=== PATIENT | female | born 1990 | race Caucasian/White ===

== ENCOUNTER 2018-07-03 22:33 | Emergency (ER) | payer BC ==
[~2018-07-03] VITALS: Ht 172.7 cm; Wt 81.8 kg
[2018-07-03 22:37] VITALS: TEMP 99
[2018-07-03] MEDS ORDERED: APRESOLINE 10MG10 MG PO (23:12)
[2018-07-03] MEDS ORDERED: SINGULAIR 110 MG/TAB PO (23:12)
[2018-07-03] MEDS ORDERED: CLARITIN 1010 MG/TAB PO (23:13)
[2018-07-03] MEDS ORDERED: FLONASEALLERGY NS (23:13)
[2018-07-03] MEDS ORDERED: XOPENEX HF0.045 MG/A IH (23:13)
[2018-07-03] MEDS ORDERED: ULTRAM 50MG TAB50 MG PO (23:13)
[2018-07-03] MEDS ORDERED: ZYRTEC5 MG PO (23:14)
[2018-07-03 23:43] LABS: COLLECTION METHOD CLEAN CATCH
[2018-07-03 23:52] LABS: BASO # 0.1 (0.0-0.2); BASO % 0.4 % (0.0-2.0); EOS # 0.4 (0.0-0.7); EOS % 3.2 % (0-4.0); GRAN % 74.4 % (42.2-75.2); HEMOGLOBIN 14.1 g/dl (12.5-16.0); LYMPH # 1.9 (1.2-3.4); LYMPH % 15.5 % (20.0-51.0); MEAN CELL VOLUME 87 fl (80.0-100.0); MEAN CORPUSCULAR HEMOGLOBIN 30 pg (27.0-31.0); MEAN CORPUSCULAR HGB CONC 34 g/dl (33.0-37.0); MEAN PLATELET VOLUME 11.8 fl (7.4-10.4); MONO # 0.8 (0.1-0.6); MONO % 6.3 % (1.7-9.3); PLATELET COUNT 291 K/mm3 (130-400); RED BLOOD COUNT 4.72 M/mm3 (4.10-5.30)
[2018-07-03 23:55] LABS: PH 7 (5-8); URINE APPEARANCE Clear; URINE BACTERIA None Seen /hpf; URINE BILIRUBIN Negative (NEGATIVE); URINE BLOOD 3+ (NEGATIVE); URINE COLOR Straw; URINE GLUCOSE Negative (NEGATIVE); URINE KETONE Negative (NEGATIVE); URINE LEUKOCYTE ESTERASE 1+ (NEGATIVE); URINE NITRATE Negative (NEGATIVE); URINE PROTEIN(semi-quant) Negative (NEGATIVE); URINE UROBILINOGEN Negative (NEGATIVE)
[2018-07-04 00:06] LABS: BILIRUBIN,TOTAL 0.2 mg/dL (0.0-1.0); C-REACTIVE PROTEIN 1.6 mg/dL (0.0-0.9); CALCIUM 9.1 mg/dL (8.4-10.2); CREATININE, serum 0.64 mg/dL (0.52-1.25); MAGNESIUM 1.9 mg/dL (1.6-2.3); PHOSPHOROUS 2.6 mg/dL (2.5-4.5); POTASSIUM 3.7 mmol/L (3.4-5.0); TOTAL PROTEIN 7.2 gm/dL (6.4-8.2)
[2018-07-04 00:34] LABS: TSH w REFLEX 1.49 uIU/mL (0.465-4.680)
[2018-07-04 00:47] VITALS: BP 124/81
[2018-07-04] MEDS ORDERED: FLEXERIL 1010 MG/TAB PO (02:14)
[2018-07-04] MEDS ORDERED: NORCO 325 MG-51 TAB PO (02:14)
[2018-07-04 02:42] VITALS: PULSE 75
== END 2018-07-04 02:44 | disposition home or self-care (01) ==
LOC: COL.ER 22:33
PROVIDERS: Emergency Medicine
DX: R20.2 Paresthesia of skin (principal); M62.838 Other muscle spasm; Z79.51 Long term (current) use of inhaled steroids
CPT/HCPCS: J1885; J2060